=== PATIENT | female | born 1935 | race African-American/Black ===

== ENCOUNTER 2020-09-22 09:13 | Outpatient (CLI) | payer MEDICARE ==
[2020-09-22 12:32] LABS: Mean Corpuscular Hemoglobin 28.6 pg (27.0-33.0); Mean Corpuscular Volume 89.2 fl (81.6-98.3); Mean Platelet Volume 11.7 fl (7.4-10.4); Platelet Count 290 10x3/uL (150-450); RBC Distribution Width 13.8 % (11.5-14.5); White Blood Cell (WBC) Count 9.1 10x3/uL (3.5-10.5)
[2020-09-22 12:54] LABS: Anion Gap 10 mmol/L (10-20); BUN (Urea Nitrogen) 12 mg/dL (9.8-20.1); Calc. Creatinine Clearance 0 mL/min (70-130); Calcium 9.5 mg/dL (7.8-10.44); Carbon Dioxide 31 mmol/L (23-31); Chloride 101 mmol/L (98-107); Glucose 95 mg/dL (83-110); Potassium 4.4 mmol/L (3.5-5.1); Sodium 138 mmol/L (136-145)
[2020-09-23 02:29] LABS: SARS-CoV-2 PCR by NAA Not Detected (NotDetected)
== END 2020-09-22 09:14 | disposition home or self-care (01) ==
LOC: CSHLAB 09:13
PROVIDERS: ATTEND Surgery
DX: Z01.818 Encounter for other preprocedural examination (principal); Z20.822 Contact with and (suspected) exposure to COVID-19; R94.31 Abnormal electrocardiogram [ECG] [EKG]
CPT/HCPCS: 80048; 85027; 87635; 93005; 93010; U0003; U0005

== ENCOUNTER 2020-09-25 06:00 | Day surgery (SDC) | payer MEDICARE ==
[2020-09-24 09:57] VITALS: BMI 30.1
[2020-09-25] MEDS ORDERED: Bupivacaine PF 0.5% 30 ML VIAL ONE (06:23)
[2020-09-25] MEDS ORDERED: EPINEPHrine 1 MG/ML AMP ONE (06:23)
[2020-09-25] MEDS ORDERED: Lidocaine 1% MPF 2 ML VIAL ONE (06:55)
[2020-09-25] MEDS ORDERED: Glycopyrrolate 0.2 MG/ML 5 ML SYRINGE ONE (07:31)
[2020-09-25] MEDS ORDERED: PROPOFOL 20 ML ONE (07:31)
[2020-09-25] MEDS ORDERED: Dexamethasone 4 mg/ml Vial ONE (07:31)
[2020-09-25] MEDS ORDERED: Lidocaine 1% PF 5 ML VIAL ONE (07:31)
[2020-09-25] MEDS ORDERED: Ondansetron PF 4 MG/2 ML Vial ONE (07:31)
[2020-09-25] MEDS ORDERED: Fentanyl 100 MCG/2 ML VIAL ONE (07:31)
[2020-09-25] MEDS ORDERED: Rocuronium Bromide 10 MG/ML (10ML VIAL) ONE (07:31)
[2020-09-25] MEDS ORDERED: SUGAMMADEX SODIUM 500 MG/5 ML VIAL ONE (08:23)
[2020-09-25] MEDS ORDERED: HYDROcodone/Acetaminophen 5/325 mg Tablet PO PRN (08:52)
== END 2020-09-25 10:30 | disposition home or self-care (01) ==
LOC: CSHSDC 06:00
PROVIDERS: ATTEND Surgery
PROC: 0FT44ZZ Resection of Gallbladder, Percutaneous Endoscopic Approach (ICD-10-PCS; principal; 2020-09-25)
DX: K80.10 Calculus of gallbladder with chronic cholecystitis without obstruction (principal); I10 Essential (primary) hypertension; E78.5 Hyperlipidemia, unspecified; I73.9 Peripheral vascular disease, unspecified; Z79.899 Other long term (current) drug therapy; Z79.82 Long term (current) use of aspirin; Z88.2 Allergy status to sulfonamides
CPT/HCPCS: 88304; J0171; J0690; J1100; J2405; J2704; J3010; S0020

== ENCOUNTER 2023-03-10 09:53 | Outpatient (CLI) | payer OTHER ==
[2023-03-10] MEDS ORDERED: Magnevist 469MG/ML 20 ML VIAL ONE (12:39)
== END 2023-03-10 09:54 | disposition home or self-care (01) ==
LOC: CSHMRI 09:53
PROVIDERS: ATTEND Ophthalmology
DX: G51.31 Clonic hemifacial spasm, right (principal); G31.9 Degenerative disease of nervous system, unspecified; H74.8X2 Other specified disorders of left middle ear and mastoid
CPT/HCPCS: 70553; 82565; A9579

== ENCOUNTER 2024-06-12 13:32 | Outpatient (CLI) | payer OTHER | END 2024-06-12 13:33 | disposition home or self-care (01) | LOC: CSHULT 13:32 | PROVIDERS: ATTEND Family Medicine | DX: I35.1 Nonrheumatic aortic (valve) insufficiency (principal); I35.2 Nonrheumatic aortic (valve) stenosis with insufficiency; I77.810 Thoracic aortic ectasia | CPT/HCPCS: 93306 ==

== ENCOUNTER 2025-02-26 13:00 | Outpatient (CLI) | payer OTHER | END 2025-02-26 13:01 | disposition home or self-care (01) | LOC: CSHCT 13:00 | PROVIDERS: ATTEND Family Medicine | DX: R29.810 Facial weakness (principal); R01.1 Cardiac murmur, unspecified; I35.8 Other nonrheumatic aortic valve disorders; I35.2 Nonrheumatic aortic (valve) stenosis with insufficiency | CPT/HCPCS: 70450; 93306 ==

== ENCOUNTER 2025-03-19 08:35 | Outpatient (CLI) | payer OTHER | END 2025-03-19 08:36 | disposition home or self-care (01) | LOC: CSHRAD 08:35 | PROVIDERS: ATTEND Physician Assistant Medical | DX: R09.A2 Foreign body sensation, throat (principal); K30 Functional dyspepsia; K22.89 Other specified disease of esophagus | CPT/HCPCS: 74220 ==